=== PATIENT | female | born 1985 | race Caucasian/White ===

== ENCOUNTER 2017-08-11 17:14 | Emergency (ER) | payer OTHER ==
[~2017-08-11] VITALS: Ht 154.9 cm; Wt 81.7 kg
[~2017-08-11 17:14] MED LIST: ALEVE220 MG PO; AMOXICILLIN875 MG PO; CIPROFLOXACIN500 M1 PO; FLOMAX0.4 MG PO; IBUPROFEN 800800 MG PO; IRON325 PO; NOHOMEMEDICATIONS; NORCO 5-325 TA1 EACH PO; ONDANSETRON HCL4 M2 PO; PROMETHAZINE-C120 ML PO; TRAMADOL 50 MG50 MG PO; UNICOMPLEX M TA1 TA1 PO
[2017-08-11] MEDS ORDERED: VISTARIL 25 MG25 M1 PO (17:48)
[2017-08-11 19:17] VITALS: BP 114/62
== END 2017-08-11 19:20 | disposition home or self-care (01) ==
LOC: ER 17:14
DX: F41.9 Anxiety disorder, unspecified (principal); F32.9 Major depressive disorder, single episode, unspecified; K21.9 Gastro-esophageal reflux disease without esophagitis; F17.210 Nicotine dependence, cigarettes, uncomplicated; F10.99 Alcohol use, unspecified with unspecified alcohol-induced disorder

== ENCOUNTER 2018-02-16 19:27 | Emergency (ER) | payer OTHER ==
[~2018-02-16] VITALS: Ht 154.9 cm; Wt 79.4 kg
--- NOTE | ~2018-02-16 | EKG ---
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
[~2018-02-16 19:27] MED LIST changes: +VISTARIL 25 MG25 M1 PO
[2018-02-16] MEDS ORDERED: VENLAFAXIN37.5 MG/1 PO (19:59)
[2018-02-16 20:15] LABS: ABSOLUTE NEUTROPHILS 3.1 thou/uL (1.4-8.2); BASOPHILS 1.3 % (0.0-2.0); EOSINOPHILS 2.9 % (0.0-3.0); HEMATOCRIT 29.4 % (37.0-47.0); HEMOGLOBIN 9.9 gm/dL (12.0-15.0); LYMPHOCYTES 37.2 % (24.0-44.0); MCH 26.6 pg (26.0-34.0); MCHC 33.5 g/dL (28.0-37.0); MCV 79.4 fL (80.0-100.0); MONOCYTES 6.6 % (1.0-8.0); PLATELET COUNT 207 thou/uL (150-400); RBC 3.71 mil/uL (4.20-5.00); RDW 16.2 % (10.5-14.5); WBC 5.9 thou/uL (4.0-11.0)
[2018-02-16 20:22] LABS: ANION GAP 7 mmol/L (7-16); BUN 12 mg/dL (7-18); CALCIUM 8.7 mg/dL (8.5-10.1); CHLORIDE 105 mmol/L (98-107); CO2 27 mmol/L (21-32); CREATININE 0.7 mg/dL (0.6-1.0); GLUCOSE 90 mg/dL (74-106); POTASSIUM 3.8 mmol/L (3.5-5.1); SODIUM 139 mmol/L (136-145)
[2018-02-16] MEDS ORDERED: VALIUM5 MG PO (20:29)
[2018-02-16 20:56] VITALS: BP 122/76
[2018-02-16 21:03] LABS: TROPONIN-I < 0.04 ng/mL (<0.06)
== END 2018-02-16 21:26 | disposition home or self-care (01) ==
LOC: ER 19:27
PROVIDERS: Emergency Medicine
DX: D64.9 Anemia, unspecified (principal); F32.9 Major depressive disorder, single episode, unspecified; K21.9 Gastro-esophageal reflux disease without esophagitis; F17.210 Nicotine dependence, cigarettes, uncomplicated

== ENCOUNTER 2018-03-10 06:52 | Emergency (ER) | payer OTHER ==
[~2018-03-10] VITALS: Ht 154.9 cm; Wt 74.8 kg
[~2018-03-10 06:52] MED LIST changes: +VALIUM5 MG PO; +VENLAFAXIN37.5 MG/1 PO
[2018-03-10 07:05] VITALS: BP 115/68
[2018-03-10 07:11] LABS: URINE BILIRUBIN NEGATIVE (Negative); URINE BLOOD NEGATIVE (Negative); URINE CLARITY CLEAR; URINE COLOR YELLOW; URINE GLUCOSE-RANDOM* NEGATIVE (Negative); URINE KETONES NEGATIVE (Negative); URINE LEUKOCYTES-REFLEX NEGATIVE (Negative); URINE NITRITE-REFLEX NEGATIVE (Negative); URINE PROTEIN (DIPSTICK) NEGATIVE (Negative); URINE SPECIFIC GRAVITY >= 1.030 (1.005-1.035); URINE UROBILINOGEN 0.2 E.U./dl (0.2-1.0)
[2018-03-11 13:13] LABS: NEISSERIA GONORRHEA-PCR Negative (Negative)
== END 2018-03-10 08:34 | disposition home or self-care (01) ==
LOC: ER 06:52
PROVIDERS: Emergency Medicine
DX: N89.8 Other specified noninflammatory disorders of vagina (principal); F32.9 Major depressive disorder, single episode, unspecified; K21.9 Gastro-esophageal reflux disease without esophagitis; F17.210 Nicotine dependence, cigarettes, uncomplicated

== ENCOUNTER 2018-08-21 10:46 | Emergency (ER) | payer OTHER ==
[~2018-08-21] VITALS: Ht 152.4 cm; Wt 80.7 kg
[2018-08-21 11:09] LABS: URINE BILIRUBIN NEGATIVE (Negative); URINE BLOOD TRACE (Negative); URINE CLARITY CLEAR; URINE COLOR YELLOW; URINE GLUCOSE-RANDOM* NEGATIVE (Negative); URINE KETONES TRACE (Negative); URINE LEUKOCYTES-REFLEX NEGATIVE (Negative); URINE NITRITE-REFLEX NEGATIVE (Negative); URINE PROTEIN (DIPSTICK) NEGATIVE (Negative); URINE SPECIFIC GRAVITY 1.025 (1.005-1.035); URINE UROBILINOGEN 0.2 E.U./dl (0.2-1.0)
[2018-08-21 12:06] LABS: SQUAMOUS 0-3 Few /LPF (0-3)
[2018-08-21 12:07] LABS: BACTERIA 1-9 Few /HPF (None Seen); CASTS None Seen /LPF (None Seen); CRYSTALS None Seen /LPF (None Seen); URINE RBC None Seen /HPF (0-2); URINE WBC 0-5 Rare /HPF (0-5)
[2018-08-21] MEDS ORDERED: MACROBID 100 M100 M1 PO (12:26)
[2018-08-21 12:35] VITALS: BP 124/70
== END 2018-08-21 12:52 | disposition home or self-care (01) ==
LOC: ER 10:46
PROVIDERS: Student in an Organized Health Care Education/Training Program
DX: N39.0 Urinary tract infection, site not specified (principal); F17.210 Nicotine dependence, cigarettes, uncomplicated; F32.9 Major depressive disorder, single episode, unspecified; K21.9 Gastro-esophageal reflux disease without esophagitis

== ENCOUNTER 2019-09-24 16:56 | Emergency (ER) | payer OTHER ==
[~2019-09-24] VITALS: Ht 154.9 cm; Wt 81.7 kg
[~2019-09-24 16:56] MED LIST changes: +MACROBID 100 M100 M1 PO
[2019-09-24 17:14] LABS: URINE BILIRUBIN NEGATIVE (Negative); URINE BLOOD NEGATIVE (Negative); URINE CLARITY CLEAR; URINE COLOR YELLOW; URINE GLUCOSE-RANDOM* NEGATIVE (Negative); URINE KETONES NEGATIVE (Negative); URINE LEUKOCYTES-REFLEX NEGATIVE (Negative); URINE PROTEIN (DIPSTICK) NEGATIVE (Negative); URINE SPECIFIC GRAVITY <= 1.005 (1.005-1.035)
[2019-09-24 17:20] LABS: URINE NITRITE-REFLEX POSITIVE (Negative)
[2019-09-24 17:35] LABS: BACTERIA-REFLEX 1-9 Few /HPF (None Seen); CASTS None Seen /LPF (None Seen); CRYSTALS None Seen /LPF (None Seen); SQUAMOUS 0-3 Few /LPF (0-3); URINE WBC-REFLEX None Seen /HPF (0-5)
[2019-09-24 17:36] LABS: URINE RBC None Seen /HPF (0-2)
[2019-09-24] MEDS ORDERED: FLAGYL500 M1 PO (18:39)
[2019-09-24] MEDS ORDERED: MACROBID 100 M100 MG PO (18:39)
[2019-09-24] MEDS ORDERED: DIFLUCAN200 MG PO (18:39)
[2019-09-24 18:52] VITALS: BP 145/62
== END 2019-09-24 18:54 | disposition home or self-care (01) ==
LOC: ER 16:56
PROVIDERS: Physician Assistant
DX: N76.0 Acute vaginitis (principal); N39.0 Urinary tract infection, site not specified; K21.9 Gastro-esophageal reflux disease without esophagitis; F32.9 Major depressive disorder, single episode, unspecified; F17.210 Nicotine dependence, cigarettes, uncomplicated; Z86.19 Personal history of other infectious and parasitic diseases

== ENCOUNTER 2019-10-13 16:36 | Emergency (ER) | payer OTHER ==
[~2019-10-13] VITALS: Ht 154.9 cm; Wt 79.4 kg
[~2019-10-13 16:36] MED LIST changes: +DIFLUCAN200 MG PO; +FLAGYL500 M1 PO; +MACROBID 100 M100 MG PO
[2019-10-13] MEDS ORDERED: CLINDAMYCIN HC300 MG PO (17:15)
[2019-10-13] MEDS ORDERED: URISPAS100 MG PO (17:32)
[2019-10-13 18:10] LABS: URINE BILIRUBIN NEGATIVE (Negative); URINE BLOOD TRACE (Negative); URINE CLARITY CLEAR; URINE COLOR YELLOW; URINE GLUCOSE-RANDOM* NEGATIVE (Negative); URINE KETONES NEGATIVE (Negative); URINE LEUKOCYTES-REFLEX NEGATIVE (Negative); URINE NITRITE-REFLEX NEGATIVE (Negative); URINE PROTEIN (DIPSTICK) NEGATIVE (Negative); URINE SPECIFIC GRAVITY 1.015 (1.005-1.035); URINE UROBILINOGEN 0.2 E.U./dl (0.2-1.0)
[2019-10-13 18:27] VITALS: BP 125/69
== END 2019-10-13 18:28 | disposition home or self-care (01) ==
LOC: ER 16:36
PROVIDERS: Emergency Medicine
DX: N76.0 Acute vaginitis (principal); B96.89 Other specified bacterial agents as the cause of diseases classified elsewhere; F32.9 Major depressive disorder, single episode, unspecified; K21.9 Gastro-esophageal reflux disease without esophagitis; F17.210 Nicotine dependence, cigarettes, uncomplicated; Z98.51 Tubal ligation status